=== PATIENT | female | born 1945 | race Caucasian/White ===

== ENCOUNTER 2019-10-20 18:38 | Emergency (ER) | payer MEDICARE, MEDICAID ==
--- NOTE | 2019-10-20 19:33 | ER Document Report ---
ED Medical Screen (RME) - General Chief Complaint: Fall Injury Stated Complaint: FALL/LEFT SHOULDER PAIN Time Seen by Provider: 10/20/19 19:30 Mode of Arrival: Wheelchair Information source: Patient Notes: 74-year-old female presented to ED for complaint of pain to the left shoulder knee. She states she was going outside when she tripped going down the stairs she states she hit the back of her head on the railing and landed on her shoulder and her knee. She has level 5 out of 5 pain to the left shoulder. She states she has some pain in her left knee. She states that it is extremely p ainful to move the left shoulder at all. She states she was walking but it is painful to walk. She is alert oriented respirations regular nonlabored speaking in full sentences. She states she will her daughter drove her to the hospital. She states her daughter is in the car and she has her medication list. States she does have high blood pressure cholesterol and diabetes. She states she is n ot on any blood thinners. I have greeted and performed a rapid initial assessment of this patient. A comprehensive ED assessment and evaluation of the patient, analysis of test results and completion of medical decision making process will be conducted by an additional ED providers. Physical Exam - Vital signs Vitals: Temp Pulse Resp BP Pulse Ox 98.6 F 98 18 163/72 H 95 10/20/19 18:44 10/20/19 18:44 10/20/19 18:44 10/20/19 18:44 10/20/19 18:44 Course - Vital Signs Vital signs: Temp Pulse Resp BP Pulse Ox 98.6 F 98 18 163/72 H 95 10/20/19 18:44 10/20/19 18:44 10/20/19 18:44 10/20/19 18:44 10/20/19 18:44
--- NOTE | 2019-10-20 20:00 | RADIOLOGY REPORT (SQ) ---
EXAM DESCRIPTION: KNEE LEFT 4 VIEW IMAGES COMPLETED DATE/TIME: 10/20/2019 7:51 pm REASON FOR STUDY: Fall injury left shoulder and knee COMPARISON: None. NUMBER OF VIEWS: Four views. TECHNIQUE: AP, lateral, and both oblique radiographic images acquired of the left knee. LIMITATIONS: None. FINDINGS: MINERALIZATION: Normal. BONES: No acute fracture or dislocation. No worrisome bone lesions. JOINT: No effusion. SOFT TISSUES: No soft tissue swelling. No radio-opaque foreign body. OTHER: No other significant finding. IMPRESSION: 1. No acute osseous findings. TECHNICAL DOCUMENTATION: JOB ID: [id number] 2010 [employer]- All Rights Reserved Reading location - IP/workstation name: [email or web address]
--- NOTE | 2019-10-20 20:09 | RADIOLOGY REPORT (SQ) ---
EXAM DESCRIPTION: SHOULDER LEFT 2 OR MORE VIEWS IMAGES COMPLETED DATE/TIME: 10/20/2019 7:51 pm REASON FOR STUDY: Fall injury left shoulder and knee COMPARISON: None. NUMBER OF VIEWS: Two views. TECHNIQUE: Internal rotation and Y view images acquired of the left shoulder. LIMITATIONS: None. FINDINGS: MINERALIZATION: Normal. BONES: Sclerotic density across the humeral neck on the internal view raises the question of possibl e fracture. The patient would not cooperate for the external view of the left shoulder. Study is kaylee gan. JOINTS: No dislocation. VISUALIZED LUNGS AND RIBS: No pneumothorax. No rib fracture. SOFT TISSUES: No radiopaque foreign body. OTHER: No other significant finding. IMPRESSION: 1. The examination is limited as the patient would not cooperate for the external view of the left shoulder. Question of possible fracture left humeral head. Additonal imaging (CT Left s houlder) suggested. COMMENT: 1. The results of this examination were discussed with emergency department provider on at 20:02 hours. TECHNICAL DOCUMENTATION: JOB ID: [id number] 2010 [employer]- All Rights Reserved Reading location - IP/workstation name: [email or web address]
--- NOTE | 2019-10-20 20:12 | ER Document Report ---
Doctor's Note Notes: 10/20/19 20:11 Radiologist did read the x-ray requested a CT of the shoulder she states she cannot rule out a humeral head fracture
--- NOTE | 2019-10-20 20:52 | RADIOLOGY REPORT (SQ) ---
EXAM DESCRIPTION: CT UPPER EXTREMITY WITHOUT IV CONTRAST COMPLETED DATE/TME: 10/20/2019 20:08 CLINICAL HISTORY: 74 years, Female, Possible humeral head fracture fall COMPARISON: Plain radiographs of the left shoulder performed earlier the same day TECHNIQUE: Noncontrast CT of the left shoulder was acquired. Coronal and sagittal reformations were created. Images stored on PACS. All CT scanners at this facility use dose modulation, iterative reconstruction, and/or weight based dosing when appropriate to reduce radiation dose to as low as reasonably achievable (ALARA). [facility]: Dose Right [facility]: CareDose [facility]: Dose Right [facility]: Teradose 4D [facility]: [employer] LIMITATIONS: None. FINDINGS: Limited assessment of the left lung reveals no suspicious finding. Soft tissues show no suspicious finding. AC joint appears mildly narrowed. The scapula is intact. Visualized is focal fracture deformity involving the anatomic neck of the humerus extending to the greater tuberosity. In addition, the humeral head appears somewhat impacted. Other than the impaction, no additional significantly displaced fragments are noted. IMPRESSION: Mildly impacted fracture involving the humeral head. TECHNICAL DOCUMENTATION: Quality ID # [id number]: Final reports with documentation of one or more dose reduction techniques (e.g., Automated exposure control, adjustment of the mA and/or kV according to patient size, use of iterative reconstruction technique) copyright 2011 [employer]- All Rights Reserved
--- NOTE | 2019-10-20 21:17 | ER Document Report ---
ED General - General Chief Complaint: Fall Injury Stated Complaint: FALL/LEFT SHOULDER PAIN Time Seen by Provider: 10/20/19 19:30 Mode of Arrival: Wheelchair Information source: Patient Notes: Omer mendez Radiologist did read the x-ray requested a CT of the shoulder she states she cannot rule out a humeral head fracture 74-year-old female presented to ED for complaint of pain to the left shoulder knee. She states she was going outside when she tripped going down the stairs she states she hit the back of her head on the railing and landed on her shoulder and her knee. She has level 5 out of 5 pain to the left shoulder. She states she has some pain in her left knee. She states that it is extremely painful to move the left shoulder at all. She states she was walking but it is painful to walk. She is alert oriented respirations regular nonlabored speaking in full sentences. She states she will her daughter drove her to the hospital. She states her daughter is in the car and she has her medication list. States she does have high blood pressure cholesterol and diabetes. She states she is not on any blood thinners. 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 Patient fell down some steps while walking her daughter's dog today around 12 noon. Patient fell forwards impacting her left shoulder and left knee. X-rays reveal left humeral neck fracture. Patient denied any LOC. She has had severe pain 9 out of 10 since this occurred. X-ray of left knee was within normal limits. Patient is from [facility] and will follow-up there with her personal doctor. Her daughter will drive her home tonight. She will be placed in a left shoulder immobilizer and sent home with pain medicines. Patient has a history of diabetes TRAVEL OUTSIDE OF THE [place] IN LAST 30 DAYS: No - HPI Onset: Other - 12 noon Onset/Duration: Sudden Quality of pain: Achy Severity: Severe Pain Level: 4 Associated symptoms: None Exacerbated by: Movement Relieved by: Remaining still Similar symptoms previously: No Recently seen / treated by doctor: No - Related Data Allergies/Adverse Reactions: No Known Allergies Allergy (Unverified 10/20/19 19:34) Home Medications: lisinopril, atorvastatin, jenadueto, welbutrin, omeprazole, fenofibrate, victoza, levemir, glimepiride Past Medical History - General Information source: Patient - Social History Smoking Status: Never Smoker Chew tobacco use (# tins/day): No Frequency of alcohol use: None Drug Abuse: None Lives with: Family Family History: Reviewed & Not Pertinent Patient has suicidal ideation: No Patient has homicidal ideation: No - Past Medical History Cardiac Medical History: Reports: Hx Hypercholesterolemia, Hx Hypertension Endocrine Medical History: Reports: Hx Diabetes Mellitus Type 2 GI Medical History: Reports: Hx Gastroesophageal Reflux Disease Musculoskeletal Medical History: Reports Hx Arthritis Past Surgical History: Reports: Hx Appendectomy, Hx Tubal Ligation Review of Systems - Review of Systems Constitutional: No symptoms reported EENT: No symptoms reported Cardiovascular: No symptoms reported Respiratory: No symptoms reported Gastrointestinal: No symptoms reported Genitourinary: No symptoms reported Female Genitourinary: No symptoms reported Musculoskeletal: No symptoms reported, See HPI, Joint pain, Joint swelling, Muscle stiffness Skin: No symptoms reported Hematologic/Lymphatic: No symptoms reported Neurological/Psychological: No symptoms reported Physical Exam - Vital signs Vitals: Temp Pulse Resp BP Pulse Ox 98.6 F 98 18 163/72 H 95 10/20/19 18:44 10/20/19 18:44 10/20/19 18:44 10/20/19 18:44 10/20/19 18:44 Interpretation: Hypertensive - General General appearance: Alert - HEENT Head: Normocephalic, Atraumatic Eyes: Normal Pupils: PERRL Sinus: Normal Nasal: Normal Mouth/Lips: Normal Mucous membranes: Normal Pharynx: Normal Neck: Normal - Respiratory Respiratory status: No respiratory distress Chest status: Nontender Breath sounds: Normal Chest palpation: Normal - Cardiovascular Rhythm: Regular Heart sounds: Normal auscultation Murmur: No - Abdominal Inspection: Normal Distension: No distension Bowel sounds: Normal Tenderness: Nontender Organomegaly: No organomegaly - Genitourinary Bimanuel exam: Other - deferred - Back Back: Normal, Nontender - Extremities General upper extremity: Other - Tender left shoulder laterally deltoid area on palpation no obvious abrasions or ecchymosis but positive edema and tenderness on palpation and attempts at range of motion. Patient keeps left upper extremity in a flexed elbow arm to waist position. General lower extremity: Normal inspection - Neurological Neuro grossly intact: Yes Cognition: Normal Orientation: AAOx4 Nika Coma Scale Eye Opening: Spontaneous Nika Coma Scale Verbal: Oriented Nika Coma Scale Motor: Obeys Commands Nika Coma Scale Total: 15 Speech: Normal Motor strength normal: LUE, RUE, LLE, RLE Sensory: Normal - Psychological Associated symptoms: Normal affect - Skin Skin Temperature: Warm Skin Moisture: Dry Course - Vital Signs Vital signs: Temp Pulse Resp BP Pulse Ox 98.6 F 98 18 163/72 H 95 10/20/19 19:26 10/20/19 18:44 10/20/19 18:44 10/20/19 18:44 10/20/19 18:44 - Diagnostic Test Radiology reviewed: Reports reviewed Critical Care Note - Critical Care Note Total time excluding time spent on procedures (mins): 90 Comments: I advised patient of her x-ray findings and patient will be placed in a shoulder immobilizer Discharge - Discharge Clinical Impression: Humeral fracture Qualifiers: Encounter type: initial encounter Humerus Location: proximal Fracture type: closed Fracture morphology: other fracture Fracture alignment: nondisplaced Laterality: left Qualified Code(s): S42.295A - Other nondisplaced fracture of upper end of left humerus, initial encounter for closed fracture Condition: Good Disposition: HOME, SELF-CARE Additional Instructions: Follow-up with orthopedics of choice. Call your physician for their choice of orthopedics as well and Marylin Ramos return to ER as needed take medicines as directed RICE that is rest ice compression and keep arm in an immobilizer
[2019-10-20] MEDS ORDERED: OXYCODONE-ACETAMINOPHEN 5-325 MG TABLET PO ONE (21:26)
[2019-10-20] MEDS ORDERED: KETOROLAC TROMETHAMINE INJ/PF 30 MG/1 ML SDV IM ONE (21:26)
[2019-10-20] MEDS ORDERED: ONDANSETRON 4 MG TAB.RAPDIS PO ONE (21:27)
[2019-10-20] MEDS ORDERED: ONDANSETRON ODT 4 MG TAB (6 TAB/ER DISP) PO PRN (21:28)
[2019-10-20] MEDS ORDERED: HYDROCODONE/ACETAMINOPHEN 5-325 MG (6 TAB/ER DISP) PO PRN (21:29)
[2019-10-20 22:16] VITALS: BP 150/71
== END 2019-10-20 22:16 | disposition home or self-care (01) ==
LOC: ER 18:38
DX: S42.295A Other nondisplaced fracture of upper end of left humerus, initial encounter for closed fracture (principal); M25.512 Pain in left shoulder; M25.562 Pain in left knee; W10.9XXA Fall (on) (from) unspecified stairs and steps, initial encounter; Z79.899 Other long term (current) drug therapy; I10 Essential (primary) hypertension; E11.9 Type 2 diabetes mellitus without complications
CPT/HCPCS: 99285; 96372; 73564; 73030; 73200; A9270 ×4; J1885; S0119